=== PATIENT | male | born 1965 | race Two or more races ===

== ENCOUNTER 2023-11-22 23:04 | Emergency (ER) | payer MEDICAID, OTHER ==
[~2023-11-22] VITALS: Ht 165.1 cm; Wt 96.5 kg
[2023-11-23] MEDS ORDERED: IBUP-1455 PO (01:11)
[2023-11-23 01:15] VITALS: BP 130/84; PULSE 74; RESP 20; TEMP 98.4; O2SAT 96
[2023-11-23] MEDS: IBUPROFEN 800 MG TAB PO ONE (01:28)
== END 2023-11-23 01:52 | disposition home or self-care (01) ==
LOC: ER 23:04
DX: S90.02XA Contusion of left ankle, initial encounter (principal); Z98.890 Other specified postprocedural states; Z88.8 Allergy status to other drugs, medicaments and biological substances; W22.8XXA Striking against or struck by other objects, initial encounter; Y93.89 Activity, other specified; Y92.89 Other specified places as the place of occurrence of the external cause; Y99.8 Other external cause status
CPT/HCPCS: 73610